=== PATIENT | male | born 1955 | race Caucasian/White ===

== ENCOUNTER 2016-05-22 10:01 | Emergency (ER) | payer OTHER ==
[2016-05-22] MEDS ORDERED: Adenosine 3 mg/mL 2 mL Inj ONE (10:06)
[2016-05-22 10:10] VITALS: BP 146/93; PULSE 170; RESP 29; O2SAT 100
[2016-05-22 10:21] LABS: BASOPHILS % (AUTO) 0.2 % (0-3); EOSINOPHILS % (AUTO) 1.3 % (0-5); MONOCYTES % (AUTO) 10.2 % (4-12); Mean Corpuscular Hemoglobin 31.4 pg (27.0-35.0); Mean Corpuscular Volume 90.1 fL (81-100); NEUTROPHILS % (AUTO) 57.4 % (40-74); Platelet Count 192 bil/L (150-400)
[2016-05-22 10:38] LABS: TROPONIN T 0.01 ug/L (0.0-0.011)
--- NOTE | 2016-05-22 10:46 | ED.REPORT ---
HPI-Chest Pain 40 and Over Date of Service May 22, 2016 ED Provider: Eduar Brand MD 60 year old male with a history of HTN and hypercholesterolemia presents to the ER complaining of chest pain and palpitations onset an hour prior to his arrival in the department. He describes the pain as a feeling of "heaviness", and reports associated SOB and diaphoresis. Two nights ago he had a 5-10 second episode of similar with lightheadedness. Patient denies any history of diabetes or cardiac disease. Nursing Notes Stated Complaint: GENERAL Chief Complaint: Chest Pain Nursing Notes Reviewed: Yes Allergies: Coded Allergies: Penicillins (Verified Allergy, Unknown, 05/22/16) General Time Seen by MD: 10:07 Chief Complaint Chest pain Hx Obtained From: Patient Arrived By: Walk-in Sudden in Onset?: Yes Onset Occurred: 1 - 4 hours ago (1) Symptom Duration: Since onset Location: : Substernal Quality: Pressure Radiation: : Does not radiate Severity: Current: Moderate Severity: Maximum: Moderate Associated with: Reports: Diaphoresis, Palpitations, Shortness of Breath, Denies: Cough, non-productive, Cough, productive Context Related History: Denies: Congestive heart failure, Diabetes mellitus, Myocardial infarction Similar Sx Previous: Yes Past Medical History Past Medical History Murmur as a child Reports: Hyperlipidemia (Hypercholesterolemia), Hypertension, Denies: Congestive heart failure, Coronary artery disease, Diabetes mellitus Denies: Atrial fibrillation Smoking History Unknown if Ever Smoker Social History Other Social History: Good social support, Ambulatory Status Independent Review of Systems Respiratory: Reports: Shortness of breath, Denies: Non-productive cough Cardiovascular: Reports: Chest pain, Palpitations GI: Denies: Nausea, Vomiting Musculoskeletal: Denies: Extremity pain, Lumbar pain, Neck pain Skin: Reports Diaphoresis Complete sys rev & neg: except as marked. Physical Exam Initial Vital Signs Vital Signs (First) Date Time Temp Pulse Resp B/P Pulse Ox O2 Delivery O2 Flow Rate FiO2 05/22/16 10:10 36.5 170 29 146/93 100 Room Air Initial VS: Reviewed Head / Eyes: Atraumatic, Normocephalic Neck: Supple, Non-tender, Full range of motion Extremities: Vascular intact, Neuro intact, No tenderness Skin: Warm, Dry, No cyanosis Neurologic: Alert, Oriented, Nonfocal General/Constitutional: Awake, Alert, Well developed, Well nourished Respiratory / Chest: Breath sounds NL, Breath sounds = bilat, No respiratory distress, No rales, No rhonchi, No wheezing, No stridor, No chest tenderness Cardiovascular: Regular rhythm, No gallop, No murmurs, No rubs Heart Rate / Rhythm: Positive: Tachycardia Trace edema in the bilateral lower extremities. Abdomen: Soft, Non-tender, No guarding, No rebound, No distention Interpretation & Diagnostics Lab Results Interpretation Result Diagram: 05/22/16 1014 05/22/16 1014 Test 05/22/16 10:14 White Blood Count 8.4th/mm3 (3.8-10.1) Red Blood Count 4.65mil/mm3 (4.40-5.80) Hemoglobin 14.6g/dL (13.8-17.2) Hematocrit 41.9% (41.0-50.0) Mean Corpuscular Volume 90.1fL (81-100) Mean Corpuscular Hemoglobin 31.4pg (27.0-35.0) Mean Corpuscular Hemoglobin Concent 34.8% (32.0-37.0) Red Cell Distribution Width 12.9% (12.3-15.4) Platelet Count 192bil/L (150-400) Neutrophils (%) (Auto) 57.4% (40-74) Lymphocytes (%) (Auto) 30.5% (14-46) Monocytes (%) (Auto) 10.2% (4-12) Eosinophils (%) (Auto) 1.3% (0-5) Basophils (%) (Auto) 0.2% (0-3) Sodium Level 136mEq/L (134-144) Potassium Level 3.2mEq/L (3.5-5.2) Chloride Level 97mEq/L (97-108) Carbon Dioxide Level 21mmol/L (18-29) Blood Urea Nitrogen 10mg/dL (6-24) Creatinine 0.72mg/dL (0.76-1.27) Estimat Glomerular Filtration Rate 119mL/min (>59) Glucose Level 130mg/dL (60-99) Calcium Level 9.5mg/dL (8.5-10.1) Magnesium Level 1.7mg/dL (1.6-2.6) Total Bilirubin 0.4mg/dL (0.0-1.2) Aspartate Amino Transf (AST/SGOT) 20U/L (0-50) Alanine Aminotransferase (ALT/SGPT) 20U/L (0-44) Alkaline Phosphatase 47U/L (25-160) Troponin T 0.010ug/L (0.0-0.011) Total Protein 7.4g/dL (6.4-8.4) Albumin 4.7g/dL (3.4-5.0) Thyroid Stimulating Hormone (TSH) 2.060uIU/mL (0.450-4.500) ECG Interpretation ECG Interpretation: Sinus tachycardia, rate 102 Multiple PVC's Left axis deviation Time: 10:17 Interpreted by: ED physician X-Ray Chest Interpretation Chest Xray Interpretation: IMPRESSION: No acute cardiopulmonary disease process. Dictated by: Unique Ojeda MD, PhD on 05/22/2016 at 10:54 Approved by: Unique Ojeda MD, PhD on 05/22/2016 at 10:55 View: Portable, 1 view Interpretation / Wet Read by: Interpret - Radiologist Re-Eval/Medical Decision Source of Hx: Old records Time of Eval: 11:14 Re-Evaluation/Progress Note: Discussed lab and radiology results and plan to discharge following echocardiogram and TSH test. Patient is amenable to the plan. Return precautions given. All other questions addressed. Time of Eval: 12:06 Re-Evaluation/Progress Note: Patient is now accompanied by his who is at the bedside. Resting comfortably. Consultation : Referral / Consult Name: George Barrett MD Consulted With: Cardiology Call Returned at: 11:11 Gear Setter: Will see in office Note: Echocardiogram and TSH. Counseled Regarding: Diagnosis, Lab results, Need for follow-up, When/why to return to ED Discharge & Departure Primary Impression: Supraventricular tachycardia Disposition: Home Discharge Condition All VS Reviewed: Yes Condition: Stable Patient Instructions: Supraventricular Tachycardia (ED) Additional Instructions: No dangerous cause for your fast heart rate was discovered today. Echocardiogram results will be available in a day or two. If you develop recurrent symptoms, take metoprolol 1 tablet and wait 30 minutes and you can repeat it once if needed. If you have recurrent symptoms associated with lightheadedness, fainting or chest pain or shortness of breath but does not resolve promptly, return to the emergency department for further treatment. Follow-up with Dr. Barrett in cardiology next week. Referrals: Luis M Perez MD (PCP) Scribe Attestation Portions of this note were transcribed by Mark Lemon. I, Dr. Brand, personally performed the history, physical exam and medical decision-making; I reviewed and confirmed the accuracy of the information in the transcribed note. Signed by: Antonella Yoo, 05/22/2016 and *time* copies to: Luis M Perez MD; George Barrett MD, Kirk H MD May 22, 2016 10:46 MARK LEMON May 22, 2016 10:53
[2016-05-22 10:49] LABS: Magnesium 1.7 mg/dL (1.6-2.6)
--- NOTE | 2016-05-22 10:56 | DRSVH ---
PROCEDURE: X-RAY CHEST ONE VIEW, PORTABLE ([id number]) INDICATIONS: CHEST PAIN TECHNIQUE: One view of the chest was acquired. COMPARISON: [facility], , CHEST 1 VIEW, 09/18/2007, 2:51. FINDINGS: Surgical changes and devices: Surgical clips project over the lower cervical spine Lungs and pleura: No pleural effusions or pneumothorax. Lungs are clear. Mediastinum: Mediastinal contours appear normal. Heart size is normal. Bones and chest wall: No suspicious bony lesions. Overlying soft tissues appear unremarkable. IMPRESSION: No acute cardiopulmonary disease process. Dictated by: Unique Ojeda MD, PhD on 05/22/2016 at 10:54 Approved by: Unique Ojeda MD, PhD on 05/22/2016 at 10:55
[2016-05-22] MEDS ORDERED: METO50TA3 PO (13:36)
[2016-05-22 13:47] VITALS: BP 117/55; PULSE 67; RESP 12; O2SAT 100
--- NOTE | 2016-05-22 15:59 | DRSVH ---
[facility] [address] [place] [address] Echocardiogram Report Name: MIRNA MANJARREZ Date: 05/22/2016 Height: 71 in Hospital Exam Location: [facility] Weight: 217 lb Gender: Male BSA: 2.2 m2 : 1955 Age: 60 yrs BP: 127/74 mmHg Reason For Study: SVT Ordering Physician: Performed By: Aster Cannon Referring Physician: Luis M Perez Interpretation Summary Technically difficult study limiting valve visualization. 1) Normal left ventricuar thickness, size, wall motion, and systolic function (EF 55-60%). 2) Normal right ventricular size and function. 3) Aortic valve has nodular calcification but no hemodynamically signficant stenosis present. 4) Mild aortic regurgitation present. 5) Moderate biatrial enlargement present. Possible PFO present based on color doppler. 6) Normal pulmonary artery pressures. 7) No prior Echo available for comparison. Echo report from 08/07/2005 also showed aortic valve thickening with mild regurgitation and no stenosis. Procedure: A two-dimensional transthoracic echocardiogram with color flow and Doppler was performed. The study quality was technically difficult. Comparison is made with the echocardiogram of 08/07/2005, images not available. The patient was in normal sinus rhythm during the exam. Left Ventricle: The left ventricle is normal in size. There is normal left ventricular wall thickness. Left ventricular systolic function is normal. The ejection fraction is estimated to be 55-60%. Left ventricular wall motion is normal. Assessment of diastolic parameters indicates a relaxation abnormality of the left ventricle, consistent with normal filling pressures. Right Ventricle: Borderline right ventricular enlargement. The right ventricle appears to be hypertrophied. The right ventricular systolic function is normal. Atria: The left atrium is moderately dilated. The right atrium is moderately dilated. The atrial septum is aneurysmal. Patent foramen ovale (PFO) possibly present based on color doppler. Mitral Valve: The mitral valve leaflets appear mildly thickened, but open well. There is mild mitral annular calcification. There is trace mitral regurgitation. Aortic Valve: The aortic valve is not well visualized. The non-coronary cusp appears calcified. The calculated aortic valve area is 2.3 cm2. The peak aortic velocity is 2.1 m/sec. The aortic valve mean gradient is 9 mmHg. LVOT: 2.2cm. AV VTI: 47cm, LVOT VTI: 28cm. VTI Ratio: 0.59. There is mild aortic regurgitation. Tricuspid Valve: The tricuspid valve is normal in structure and function. There is trace tricuspid regurgitation. The right ventricular systolic pressure is estimated at 28 mmHg assuming a right atrial pressure of 8 mm Hg. Pulmonic Valve: The pulmonic valve is normal in structure and function. There is trace pulmonic regurgitation. Great Vessels: The aortic root is normal size. The ascending aorta is mildly enlarged. The pulmonary artery is normal size. The IVC was not well visualized secondary to technical limitations making central venous pressures difficult to estimate. The IVC is dilated (diameter is greater than 2.1 cm) yet it collapses greater than 50% with a sniff. This suggests a right atrial pressure of 8 mm Hg. Pericardium/ Pleura There is no pericardial effusion. There is no pleural effusion. MMode/2D Measurements & Calculations LVIDd: 5.6 cm LA dimension: 4.8 cm RA long axis LVOT diam LVIDs: 3.1 cm FS: 44.2 % LA A2 area: 26.6 cm RA area Ao root diam EPSS: 1.6 cm LA A4 area: 25.5 cm IVSd: 0.96 cm LA length (vol): 6.0 cm : 24.1 cm Aortic Jxn LVPWd: 1.0 cm LA vol: 95.7 ml RA vol: 81.2 ml LA vol index RA asc Aorta : 37.2 mm2 Diam: 3.6 cm IVC diam: 2.3 cm LV holland. diameter/BSA LV sys. diameter/BSA (cm/m^2): 2.6 (cm/m^2): 1.4 Doppler Measurements & Calculations Ao V2 max MV E max saleem MV E/A: 0.76 TR max saleem : 212.2 cm/sec : 60.0 cm/sec Med Peak E' Saleem : 222.5 cm/sec Ao max P.0 mmHg MV A max saleem TR max PG Ao mean P.0 mmHg : 79.0 cm/sec E/E' med: 9.3 : 19.8 mmHg LVOT Max Saleem Lat Peak E' Saleem PA V2 max : 124.8 cm/sec : 76.2 cm/sec E/E' lat: 6.7 PA mean PG ADARSH(I,D): 2.3 cm E/e' average : 1.2 mmHg sev ratio: 0.58 AI P1/2t: 605.9 msec Pulm A Revs Dur AI dec slope : 204.2 cm/s2c MV A dur : 0.13 sec MV dec time: 0.15 secAo V2 mean LV V1 max PG PA V2 mean : 140.1 cm/sec : 51.2 cm/sec Ao V2 VTI: 47.4 cm LV V1 VTI PA pr(Accel) : 27.6 cm : 21.6 mmHg ADARSH(V,D): 2.3 cm2 ADARSH indexed to BSA Pulm A Revs Dur - MV (cm^2/m^2): 1.1 A Dur: 0.00 msec Reading Physician:03:58 PM
[2016-06-02] MEDS ORDERED: LOSA50TA3 PO (17:33)
[2016-06-02] MEDS ORDERED: TRAZ-118 PO (17:33)
[2016-06-02] MEDS ORDERED: VENL75TA3 PO (17:33)
[2016-06-02] MEDS ORDERED: PROP80CA2 PO (17:33)
[2016-06-02] MEDS ORDERED: SIMV20TA4 PO (17:33)
[2016-06-02] MEDS ORDERED: HYDR25TA4 PO (17:33)
[2016-06-02] MEDS ORDERED: ASPI-973 PO (17:33)
[2016-06-02] MEDS ORDERED: ZLP10T PO (17:33)
== END 2016-05-22 13:48 | disposition home or self-care (01) ==
LOC: SED 10:01
DX: I47.1 Supraventricular tachycardia (principal); E78.5 Hyperlipidemia, unspecified; I10 Essential (primary) hypertension; Z88.0 Allergy status to penicillin
CPT/HCPCS: 36415; 71010; 80053; 83735; 84443; 84484; 85025; 93005; 96374; 99285; C8929; J0153; Q9957

== ENCOUNTER 2016-06-03 01:04 | Day surgery (SDC) | payer OTHER ==
[~2016-06-03] VITALS: Ht 180.3 cm; Wt 88.6 kg
[2016-06-03] VITALS (12 sets, daily range): BP systolic 112–143; BP diastolic 65–98; PULSE 68–90; RESP 12–17; O2SAT 95–97
[~2016-06-03 01:04] MED LIST: ASPI-973 PO; HYDR25TA4 PO; LOSA50TA3 PO; METO50TA3 PO; PROP80CA2 PO; SIMV20TA4 PO; TRAZ-118 PO; VENL75TA3 PO; ZLP10T PO
[2016-06-03 10:05] LABS: BASOPHILS % (AUTO) 0.2 % (0-3); EOSINOPHILS % (AUTO) 1.8 % (0-5); MONOCYTES % (AUTO) 8.4 % (4-12); Mean Corpuscular Hemoglobin 30.5 pg (27.0-35.0); Mean Corpuscular Volume 91.5 fL (81-100); NEUTROPHILS % (AUTO) 62.6 % (40-74); Platelet Count 140 bil/L (150-400)
[2016-06-03 10:25] LABS: INR 0.94 ratio
[2016-06-03] MEDS ORDERED: Heparin 1,000 Unit/mL 10 mL Inj ONE (11:23)
[2016-06-03] MEDS ORDERED: 0.9% Sodium Chloride 1,000 ML ONE (11:23)
[2016-06-03] MEDS ORDERED: fentaNYL-PF 50 mCg/mL 2 mL Inj ONE ×2 (11:30→12:50)
[2016-06-03] MEDS ORDERED: Isoproterenol 200 mCg/50 mL D5W IV IV ONE (11:59)
[2016-06-03] MEDS ORDERED: HYDROcodone-APAP 5-325 mg Tablet PO PRN (14:15)
[2016-06-03] MEDS ORDERED: Ondansetron 2 mg/mL 2 mL Inj IVPUSH PRN (14:15)
[2016-06-03] MEDS ORDERED: Potassium Chloride 20 mEq SR Tablet PO ONE (14:30)
--- NOTE | 2016-06-03 15:19 | PROCED ---
[address] [address] PROCEDURE NOTE PATIENT: MIRNA MANJARREZ : 1955 MR#: [id number] ADMIT: 06/03/2016 JOB ID: [id number] DATE OF SERVICE: 06/03/2016 PREOPERATIVE DIAGNOSIS(ES): Presyncopal wide complex tachycardia. 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 PROCEDURES PERFORMED: 1. Comprehensive electrophysiology study with left atrial pacing recording via the coronary sinus catheter. 2. Three-dimensional electroanatomic mapping using the CARTO 3 system. 3. Slow pathway modification (AV ivan reentrant tachycardia ablation; atrial ablation). 4. Fluoroscopy. SURGEON: George Barrett MD, electrophysiology attending. ASSISTANTS: Corin Johnson; Gaudencio Garza. INDICATIONS: The patient is a pleasant 60-year-old man with a structurally normal heart who presented to the ED with rapid wide complex tachycardia with near syncope. After discussion of risks and benefits of EP study and potential ablation, he opted to proceed. PROCEDURAL DESCRIPTION: Following informed consent, the patient was taken to the EP laboratory in a nonsedated state where he was prepped in the usual sterile fashion. The bilateral groins were infiltrated with 1% lidocaine. Then using modified Seldinger technique, two 6-Danish sheaths were inserted into the left femoral vein. A 7 and 8-Danish sheath were inserted into the right femoral vein. Under fluoroscopic guidance, a deflectable decapolar catheter was advanced to the coronary sinus with the most proximal bipole at the os of the sinus. A CRD 2 catheter was advanced to the His position and a Kenrick quadripolar catheter was advanced to the RV apex. A comprehensive electrophysiology study was undertaken with right atrial pacing and recording, right ventricular pacing and recording, His bundle recording and the patient catheter. Retrograde conduction was very poor at the onset and he did require isoproterenol to show intact VA conduction with a concentric atrial activation pattern. Single extrastimuli from the RV ultimately led to a rapid 1:1 tachycardia with a VA time of 0 msec with atrial activation being earliest along the septum consistent with likely aberrant AV ivan reentrant tachycardia. Antegrade conduction was assessed next, and on isoproterenol at 2 mcg per minute and double extrastimuli, an antegrade jump was seen and ultimately induction of the patient's clinical tachycardia which was a regular initially narrow tachycardia at a cycle length of 340 msec as the tachycardia persisted and he did have rate with a left bundle branch morphology consistent with his clinical presentation in the ED. VA time was 0 msec. Attempts at entrainment from the V were unsuccessful and ultimately terminated the tachycardia. His synchronous PVCs did not protrude the circuit. Taken together, this data was consistent with AV ivan reentrant tachycardia and we were, therefore, prepared for slow pathway modification. An F curve 4 mm ablation catheter was brought to the field to use for a three-dimensional electroanatomic map of the right atrium, tricuspid annulus and triangle of Boudreaux. Ablation lesions were placed in the base of the triangle of Boudreaux in the region of the slow pathway ultimately with the last ablation leading to multiple conducted junctional beats. Aggressive induction maneuvers were performed on and off isoproterenol from both the ventricle and the atrium. An antegrade jump was seen without echoes or sustained tachycardia. As such, our procedure was concluded. All catheters and sheaths were removed. Manual pressure was held for hemostasis. The patient was transferred to the [facility] for monitoring, bedrest and discharge. COMPLICATIONS: None. ESTIMATED BLOOD LOSS: 10 cc. FINDINGS: 1. Baseline rhythm is sinus with an RR interval of 899 msec, CA 142 msec, QRS 110 msec, QT 414 msec. 2. Intracardiac intervals: AH interval 82 msec, HV 35 msec. Post ablation those intervals are 83 msec and 42 msec respectively. 3. Retrograde conduction: VA Wenckebach is 540 msec. Atrial activation was concentric. Antegrade conduction showed an AV Wenckebach of 280 msec. Av ivan ERP is 250 msec at a [address] AERP is 250 msec at a [address] AV ivan ERP was less or equal to this value. 4. Inducible AV ivan reentry tachycardia with left bundle aberration status post slow pathway modification as described above without inducibility post ablation. IMPRESSION: Successful slow pathway modification for AV ivan reentrant tachycardia. PLAN: 1. Bed rest x4 hours. 2. Discontinue metoprolol and continue propranolol for tremor. 3. Followup with or Nadeem Phelps in the clinic in 3-4 weeks. ATTENDING STATEMENT: George Barrett MD, electrophysiology attending, was present for and supervised/performed all aspects of this procedure.
--- NOTE | 2016-06-03 19:00 | NUR ---
Discharge Pt bilateral groin sites benign, distal pulses palpable. Denies pain. VSS. D/C education complete with pt and , both deny questions. PIV x2 d/c'd in tact. Pt ambulated independently without lightheadedness/dizziness, no oozing to groin sites. Pt d/c'd at 1900 with , who is to drive pt home.
== END 2016-06-03 23:59 | disposition home or self-care (01) ==
LOC: SOUO 01:04 → EDSTATUS 10:57 → SOUO 23:59
PROVIDERS: ATTEND Internal Medicine Cardiovascular Disease
DX: I47.1 Supraventricular tachycardia (principal); R55 Syncope and collapse; I44.7 Left bundle-branch block, unspecified; Z79.899 Other long term (current) drug therapy; I10 Essential (primary) hypertension; Z87.891 Personal history of nicotine dependence; Z79.82 Long term (current) use of aspirin
CPT/HCPCS: 36415; 80048; 85025; 85610; 93005; 93613; 93621; 93623; 93653; 99152; 99153; C1730; C1732; C1893; J0131; J2250; J3010; J7030